=== PATIENT | male | born 1960 | race Caucasian/White ===

== ENCOUNTER → 2018-03-30 | Day surgery (SDC) | payer BC ==
[~2018-03-30] MED LIST: ASPIR 8181 MG PO; BACITRACIN 50,000 UNIT VIAL ONE; BUPIVACAINE HCL 0.5% INJ 30 ML VIAL INJ ONE; CEFAZOLIN SOD 1 GM VIAL ONE; CO Q1060 MG PO; DEXAMETHASONE SOD PHOS INJ 4 MG/ML VIAL ONE; FENTANYL CITRATE/PF 100MCG/2 ML INJ ONE; JOINT SUPPLEMENT PO; KETOROLAC TROMETHAMINE 30 MG/ML VIAL ONE; KRILL OIL 1,001 EACH PO; LIDOCAINE HCL 2% LOCAL INJ 5 ML SDV VIAL INJ ONE; LOSARTAN POTASS50 MG PO; MEPERIDINE HCL INJ 50 MG/ML INJ ONE; MIDAZOLAM HCL 2 MG/2 ML VIAL ONE; MULTI-VITAMIN1 EACH PO; ONDANSETRON HCL INJ 2 MG/ML VIAL ONE; PROPOFOL IV EMULSION 10 MG/ML 20 ML VIAL ONE; SEVOFLURANE INHAL SOLN 250 ML PEN BTL ONE
--- OUTSIDE RECORDS SUMMARY | 2018-03-30 05:11 | XMS REPORT | Summary of Care ---
Author Author RICK MALHOTRA M.D. Organization Unknown Address [facility] Phone Unavailable Care Team Providers Care Lens Shaper Grinder Name Role Phone RICK MALHOTRA M.D. Unavailable Unavailable Unavailable Unavailable Functional Status Name Dates Details Functional status health issues are not documented Status: Name Dates Details Cognitive status health issues are not documented Status: Problems Name Dates Details Bilateral shoulder pain (719.41, M25.511) Status: Active Tear of right supraspinatus tendon (840.6, S46.811A) Status: Active Medications Name Dates Details Diclofenac Sodium 75 MG Oral Tablet Delayed Release TAKE 1 TABLET TWICE DAILY Quantity: 1 RICK MALHOTRA M.D. * Start : 15-Mar-2017 Active 60 Tablet Bottle Allergies and Adverse Reactions Name Dates Details Allergy history not documented Status: Procedures Procedure Dates Details [U] XRAY SHOULDER MIN 2 VWS RIGHT [id number] Date: 20-May-2017 Immunization Name Dates Details Immunizations not documented Social History Name Dates Details Unknown if ever smoked Vital Signs Date Test Result Details No Known Vitals to report Results Date Description Value Details Results not documented Plan of Care Name Dates Details Planned Observations Planned Goals not documented Interventions Provided Plan* Patient Education/Instructions: * Patient Education Provided * Reassurance * Counseling Provided. * Orders: I recommend he continue regular oral anti-inflammatories plus his home exercise program and gym work routine. If he does not see more improvement over the next 4-6 weeks he will call to schedule another subacromial injection. Follow-up otherwise as needed. * Follow Up: * Return to the clinic as needed. Instructions Name Dates Details Instructions not documented Encounters Appointment; RICK MALHOTRA M.D. Encounter Diagnosis: Problem not documented On: 15-Mar-2017 15:15 Appointment; RICK MALHOTRA M.D. Encounter Diagnosis: Problem not documented On: 08-Apr-2017 9:30 Appointment; RICK MALHOTRA M.D. Encounter Diagnosis: Problem not documented On: 20-May-2017 9:15 Appointment; RICK MALHOTRA M.D. Encounter Diagnosis: Problem not documented On: 21-May-2017 8:45 Appointment; RICK MALHOTRA M.D. Encounter Diagnosis: Problem not documented On: 24-Jun-2017 9:00 Appointment; RICK AMLHOTRA M.D. Encounter Diagnosis: Problem not documented On: 16-Jul-2017 9:15
--- OUTSIDE RECORDS SUMMARY | 2018-03-30 05:11 | XMS REPORT | Continuity of Care Document ---
Author Author [facility] Address Unknown Phone Unavailable Problems Problem Status Onset Date Classification Date Reported Comments Source S46.293S - STRAIN OF MUSC/FASC/TEND AT S Active 03/17/2017 [facility] [place] Chicken pox Resolved Problem 03/29/2017 [facility] Migraines Resolved Problem 03/29/2017 [facility] Body mass index 28.0-28.9, adult(<span ID="[id number]">Confirmed</span>) Active Problem 03/29/2017 [facility] Hypertension Active Problem 02/14/2016 [facility] Medications Medication Details Route Status Patient Instructions Ordering Provider Order Date Source morphine 1 mg=0.1 mL, Injection, IV Push, q5min PRN for Pain Moderate (4-6), order duration: 5 doses, first dose 02/12/16 8:23:00 CDT, stop date Limited # of times Inactive oc02/12/2016 [facility] promethazine IVPB 12.5 mg, IV Piggyback, Once PRN for nausea/vomiting, infuse over 15 minutes, first dose 02/12/16 8:23:00 CDT Inactive Lastoczy 02/12/2016 [facility] Misc Medication 200 mL, Soln-IV, IV, Once, first dose 02/12/16 8:13:00 CDT, stop date 02/12/16 8:13:00 CDT Inactive migelenbrwillis 02/12/2016 [facility] propofol 550 mg=55 mL, Emulsion, IV, Once, first dose 02/12/16 8:13:00 CDT, stop date 02/12/16 8:13:00 CDT Inactive Kehlenbrink 02/12/2016 [facility] lidocaine 60 mg=3 mL, Injection, IV, Once, first dose 02/12/16 7:54:00 CDT, stop date 02/12/16 7:54:00 CDT Inactive Marsha 02/12/2016 [facility] ethyl chloride topical spray 1 sprays, [place], TOP, Once, first dose 02/12/16 7:00:00 CDT, stop date 02/12/16 7:00:00 CDT Inactive Le 02/12/2016 [facility] garlic 0 Refill(s) Active 02/12/2016 [facility] Zinc mg, Oral, Daily, 0 Refill(s) Active 02/12/2016 [facility] multivitamin Daily, 0 Refill(s) Active 02/12/2016 [facility] Vitamin D with Minerals oral tablet tabs, Oral, Daily, 0 Refill(s) Active 02/12/2016 [facility] Vitamin C 1000 mg oral tablet mg tabs, Oral, Daily, 0 Refill(s) Active 02/12/2016 [facility] LR 500 mL 500 mL, IV, 100 mL/hr, start date 02/12/16 6:31:00 CDT, Adult Eye Procedures or Pain Inactive Le 02/12/2016 [facility] losartan 25 mg oral tablet 25 mg=1 tabs, Oral, Daily, 0 Refill(s) Active 02/10/2016 [facility] aspirin 81 mg oral tablet 81 mg=1 tabs, Oral, Daily, 0 Refill(s) Active 02/10/2016 [facility] Allergies, Adverse Reactions, Alerts Substance Category Reaction Severity Reaction type Status Date Reported Comments Source Levaquin<sup>1</sup> Assertion Drug allergy Active rash [facility] sulfa drugs Assertion Levaquin Drug allergy Active [facility] Levaquin drug allergy Weal (disorder) Allergy [facility] Immunizations Immunization Date Given Site Status Last Updated Comments Source diphtheria/pertussis, acel/tetanus adult 05/24/2008 completed [facility] Results Order Name Results Value Reference Range Date Interpretation Comments Source Shoulder wo contrast MRI Shoulder wo contrast MRI Exam: Right Shoulder wo contrast MRI Clinical Indication: S46.811A Strain of other muscles, fascia and tendons at shoulder and upper arm level, right arm, initial encounter. Right shoulder pain. Comparison: None TECHNIQUE: Axial, oblique coronal, and oblique sagittal MR images of the right shoulder. IV contrast: None. FINDINGS: ROTATOR CUFF AND ASSOCIATED STRUCTURES Rotator cuff: Evidence of prior rotator cuff repair with suture anchor in place in the greater tuberosity of humerus. There is otherwise tendinosis within the supraspinatus and infraspinatus tendons without discrete tear. Bursa: No bursal effusion or thickening is seen. Musculature: There is no muscular tear, contusion, or atrophy. Acromioclavicular joint: There are moderate degenerative changes of the acromioclavicular joint. A type 1 acromion configuration is noted. There is no anterior or lateral acromial downsloping. OSSEOUS STRUCTURES Postsurgical changes in the humerus head relating to prior rotator cuff repair. No acute fracture. LONG BICIPITAL TENDON The intra-articular portion of the long head of the biceps tendon is not well seen suggestive of high-grade partial-thickness and possible complete tear. GLENOHUMERAL JOINT Joint fluid: There is no glenohumeral joint effusion. Cartilage: No focal hyaline cartilage defects are noted. Labrum: Degenerative tearing and thickening of the anteroinferior labrum. No paralabral cysts are seen. OTHER FINDINGS: None. IMPRESSION: 1. Postsurgical changes relating to rotator cuff repair with underlying supraspinatus and infraspinatus tendinosis. No discrete rotator cuff tear. 2. High-grade partial-thickness and possible complete tear of the long head of the biceps tendon. 3. Degenerative tearing and thickening of the anteroinferior labrum. 4. Moderate AC joint degenerative arthritis. SL: [id number] 03/26/2017 - - Read by: Jesus Johnson MD Dictated Date/time: 03/26/17 10:38 Electronically Signed by: Jesus Johnson MD 03/26/17 10:47 FINAL REPORT [facility] Vital Signs Vital Sign Value Date Comments Source Respitory Rate 12 02/12/2016 [facility] Systolic (mm Hg) <content ID='[id number]'>126</content>/<content ID='[id number]'>80</content> 02/12/2016 [facility] Heart Rate 53 02/12/2016 [facility] Systolic (mm Hg) <content ID='[id number]'>121</content>/<content ID='[id number]'>73</content> 02/12/2016 [facility] Respitory Rate 13 02/12/2016 [facility] Heart Rate 43 02/12/2016 [facility] Respitory Rate 14 02/12/2016 [facility] Heart Rate 44 02/12/2016 [facility] Systolic (mm Hg) <content ID='[id number]'>115</content>/<content ID='[id number]'>74</content> 02/12/2016 [facility] Temperature Oral (F) 36.5 Lori 02/12/2016 [facility] Weight 100 02/12/2016 [facility] Height 187.96 cm 02/12/2016 [facility] Weight 28.31 02/12/2016 [facility] Temperature Oral (F) 36.6 Lori 02/12/2016 [facility] Peripheral Pulse Rate 68 02/12/2016 [facility] Weight 27.29 02/10/2016 [facility] Encounters Location Location Details Encounter Type Encounter Number Reason For Visit Attending Provider ADM Date DC Date Status Source Outpatient [id number] EDWINA BAR 08/26/2015 Active [facility] [id number] RAFA ROD 12/18/2015 Active [facility] Outpatient [id number] RAFA ROD 12/26/2015 [facility] Outpatient [id number] Rhett Lainez 02/12/2016 02/12/2016 Active [facility] Outpatient [id number] RAFA ROD 12/08/2016 Active [facility] Out[facility] [id number] Jarrod Atkins 03/26/2017 03/27/2017 [facility] Outpatient [id number] WES HOBSON 02/03/2018 Active [facility] Procedures Procedure Code Date Perfomer Comments Source Colonoscopy [id number] 05/24/2016 [facility] Rotator cuff repair [id number] [facility] Arthroscopy both knees [facility] Left bicept tendon repair [facility] Right inguinal hernia repair [facility] Right rotator cuff repair [facility]
--- OUTSIDE RECORDS SUMMARY | 2018-03-30 05:11 | XMS REPORT | CCD ---
Author Author Auto Generated Organization [facility] Address Unknown Phone Unavailable Care Team Providers Care Offset Printer Name Role Phone Rhett Lainez [facility] [phone] Allergies, Adverse Reactions, Alerts Substance Reaction Status Levaquin Hives Active sulfa drugs Hives Active Problem List Condition Effective Dates Status Hypertension Active Medications Medication Instructions Start Date End Date Status Misc Medication 200 mL, Soln-IV, IV, Once, first 02/12/2016 02/12/2016 Completed dose 02/12/16 8:13:00 CDT, stop date 02/12/16 8:13:00 CDT lidocaine 60 mg=3 mL, Injection, IV, Once, 02/12/2016 02/12/2016 Completed first dose 02/12/16 7:54:00 CDT, stop date 02/12/16 7:54:00 CDT propofol 550 mg=55 mL, Emulsion, IV, Once, 02/12/2016 02/12/2016 Completed first dose 02/12/16 8:13:00 CDT, stop date 02/12/16 8:13:00 CDT LR 500 mL 500 mL, IV, 100 mL/hr, start date 02/12/2016 02/12/2016 Discontinued 02/12/16 6:31:00 CDT, Adult Eye Procedures or Pain ethyl chloride 1 sprays, [place], TOP, Once, first 02/12/2016 02/12/2016 Completed topical spray dose 02/12/16 7:00:00 CDT, stop date 02/12/16 7:00:00 CDT losartan 25 mg oral 25 mg=1 tabs, Oral, Daily, 0 02/10/2016 02/24/2016 Ordered tablet Refill(s) aspirin 81 mg oral 81 mg=1 tabs, Oral, Daily, 0 02/10/2016 02/24/2016 Ordered tablet Refill(s) garlic 0 Refill(s) 02/12/2016 02/26/2016 Ordered Zinc mg, Oral, Daily, 0 Refill(s) 02/12/2016 02/26/2016 Ordered multivitamin Daily, 0 Refill(s) 02/12/2016 02/26/2016 Ordered Vitamin D with tabs, Oral, Daily, 0 Refill(s) 02/12/2016 02/26/2016 Ordered Minerals oral tablet Vitamin C 1000 mg mg tabs, Oral, Daily, 0 Refill(s) 02/12/2016 02/26/2016 Ordered oral tablet morphine 1 mg=0.1 mL, Injection, IV Push, 02/12/2016 02/12/2016 Discontinued q5min PRN for Pain Moderate (4-6), order duration: 5 doses, first dose 02/12/16 8:23:00 CDT, stop date Limited # of times morphine 2 mg=0.2 mL, Injection, IV Push, 02/12/2016 02/12/2016 Discontinued q5min PRN for pain severe (7-10), order duration: 5 doses, first dose 02/12/16 8:23:00 CDT, stop date Limited # of times promethazine IVPB 12.5 mg, IV Piggyback, Once PRN for 02/12/2016 02/12/2016 Discontinued nausea/vomiting, infuse over 15 minutes, first dose 02/12/16 8:23:00 CDT Vital Signs Most recent to oldest [Reference Range]: 1 2 3 Temperature Tympanic [36.6-38.1 DegC] 36.5 DegC *LOW* (02/12/2016 08:15:00) Temperature Temporal Artery [36.3-37.8 DegC] 36.6 DegC (02/12/2016 06:42:00) Temperature Tympanic Fahrenheit 97.7 (02/12/2016 08:15:00) Peripheral Pulse Rate [55-105 bpm] 68 bpm (02/12/2016 06:42:00) Heart Rate Monitored [60-100 bpm] 53 bpm *LOW* (02/12/2016 08:35:00) 43 bpm *LOW* (02/12/2016 08:30:00) 44 bpm *LOW* (02/12/2016 08:25:00) Respiratory Rate [12-20] 12 (02/12/2016 08:35:00) 13 (02/12/2016 08:30:00) 14 (02/12/2016 08:25:00) SpO2 [90-100 %] 98 % (02/12/2016 08:40:00) 98 % (02/12/2016 08:35:00) 98 % (02/12/2016 08:30:00) Blood Pressure [110-120/65-85 mmHg] <content ID='[id number]'>126</content>/<content ID='[id number]'>80</content> mmHg *HI* (02/12/2016 08:35:00) <content ID='[id number]'>121</content>/<content ID='[id number]'>73</content> mmHg *HI* (02/12/2016 08:30:00) <content ID='[id number]'>115</content>/<content ID='[id number]'>74</content> mmHg (02/12/2016 08:25:00) Most recent to oldest [Reference Range]: 1 2 3 Height 187.96 cm (02/12/2016 06:42:00) Height/Length Estimated 190 cm (02/10/2016 07:58:00) Height/Length Dosing 187.96 cm (02/12/2016 06:42:00) Height Inches 74 in (02/12/2016 06:42:00) Weight 100 kg (02/12/2016 06:42:00) Weight Estimated 98.5 kg (02/10/2016 07:58:00) Weight Dosing 100 kg (02/12/2016 06:42:00) Weight Pounds 220 lb (02/12/2016 06:42:00) Body Mass Index 28.31 kg/m2 (02/12/2016 06:42:00) Body Mass Index Estimated 27.29 kg/m2 (02/10/2016 07:58:00) Procedures Procedures Date Related Diagnosis Arthroscopy both knees Left bicept tendon repair Right inguinal hernia repair Right rotator cuff repair
--- OUTSIDE RECORDS SUMMARY | 2018-03-30 05:11 | XMS REPORT | Summary of Care ---
Author Author [facility] [place] Organization [facility] [place] Address Unknown Phone Unavailable Encounter HQ Sandi_ramses(FIN) [id number] Date(s): 03/26/17 - 03/26/17 [facility] Outpatient Imaging [facility] [id number] [place], [place] [address] [phone] Discharge Disposition: Home or Self Care Attending Physician: Jarrod Atkins MD Vital Signs No data available for this section Problem List Condition Effective Dates Status Health Status Informant Chicken Resolved pox(Confirmed) Migraines(Confirmed) Resolved Body mass index Active (BMI) 28.0-28.9, adult(Confirmed) Allergies, Adverse Reactions, Alerts Substance Reaction Severity Status Levaquin1 Active sulfa drugs Levaquin Active 1rash Medications No data available for this section Results No data available for this section Immunizations Given and Recorded Vaccine Date Status Refusal Reason diphtheria/pertussis, acel/tetanus adult 05/24/08 Recorded Procedures Procedure Date Related Diagnosis Body Site Colonoscopy 05/24/16 Rotator cuff repair Social History Social History Type Response Substance Abuse Use: None. Employment/School Status: Employed. 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 Alcohol Current, Type Wine. Smoking Status Former smoker; Exposure to Tobacco Smoke self; Cigarette Smoking Last 365 Days No; Reg Smoking Cessation Counseling No Assessment and Plan No data available for this section
[2018-03-30 08:45] VITALS: BP 133/86
--- NOTE | 2018-03-30 13:56 | Operative Report ---
DATE OF PROCEDURE: March 30, 2018 PREOPERATIVE DIAGNOSES 1. Right hallux rigidus 2. Right second digit hammertoe. POSTOPERATIVE DIAGNOSES 1. Right hallux rigidus 2. Right second digit hammertoe. PLANNED PROCEDURE: 1. Right Rosales bunionectomy with 1st metatarsophalangeal joint implant. 2. Second digit arthrodesis. STATION INSTALLATION SUPERVISOR: Jonathon Guzman DPM ANESTHESIA: General with a postoperative block consisting of 15 mL of 0.5% Marcaine plain. No steroid was administered. ESTIMATED BLOOD LOSS: Less than 10 mL. PATHOLOGY: None. MATERIALS: One size 3 Reference [id number] toe implant, 2-0 Vicryl, 3-0 Vicryl, 4-0 Prolene, one 0.045 K wire. PROCEDURE NOTE: Patient was seen in the preoperative waiting where the correct procedure and site were identified. Patient was brought to the operating room and placed on the operating table in the supine position. General anesthesia was initiated at this time. A well-padded pneumatic tourniquet was placed about the patient's right thigh. The right foot, ankle and leg were then scrubbed, prepped and draped in usual aseptic manner. The right foot, ankle and leg were exsanguinated with an Esmarch bandage and the pneumatic thigh tourniquet was inflated to 350 mmHg for a total time of approximately 45 minutes. Attention was directed to the dorsomedial aspect of the patient's right 1st metatarsophalangeal joint where minimal range of motion was noted to the 1st metatarsophalangeal joint. A 5 cm curvilinear incision was made directly over the joint medial to extensor hallucis longus tendon. Incision was carried through subcutaneous tissues them from deeper underlying structures. All vital neurovascular were identified, retracted medially and laterally and all bleeders were cauterized or ligated as deemed necessary. I did the same incision and a full lateral release was performed consisting of the deep transverse metatarsal ligament, lateral collateral ligament, as well as the fibular sesamoid ligament. The hallux was put through range of motion and found to be functioning in a more proper anatomic alignment. Next, attention was directed back to the 1st metatarsophalangeal joint where a linear capsulotomy was performed to offer good visualization to the 1st metatarsal head. Utilizing sagittal saw, the medial eminence, dorsal eminence and lateral eminence was resected and passed off to the back table. Per weather reporter protocol, the osteotomy was performed at the metatarsal head as well as the base of the proximal phalanx. These were resected and passed off the back table. Next, per weather reporter protocol, a guidewires were placed into the metatarsal and I the proximal phalanx and reamed appropriately. The implant with grommets was placed and found to be functioning in a proper anatomic alignment. This was confirmed via intraoperative fluoroscopy. The wound was flushed with copious amounts of sterile saline mixed with bacitracin. Deep tissues were reapproximated with 2-0 Vicryl, subcutaneous tissue with 3-0 Vicryl and the skin was closed using a running interlocking stitch of 4-0 Prolene. Attention was directed to the dorsal aspect of the patient's right 2nd proximal interphalangeal joint where a 1 cm linear incision was made directly over the proximal interphalangeal joint. Incision was then carried through subcutaneous tissue them from deeper underlying structures. All vital neurovascular structures were identified, retracted medially and laterally and all bleeders were cauterized or ligated as deemed necessary. Next, a tenotomy capsulotomy was performed at the level of proximal interphalangeal joint. The head of the proximal phalanx was freed of all capsular and ligamentous attachments. Next, utilizing a sagittal saw the head of the proximal phalanx was resected and passed off to the back table, as well as the base of the middle phalanx. Next, through a stab incision a tenotomy and capsulotomy was performed at the level of the 2nd metatarsophalangeal joint. Utilizing a double-ended K-wire, the K wire was drilled through the middle and distal phalanx and retrograded back into the proximal phalanx and into the metatarsal head and this was confirmed via intraoperative fluoroscopy. The wound was then flushed with copious amounts of sterile saline. Tendon was reapproximated with 3-0 Vicryl, and the skin was closed using simple interrupted sutures of 4-0 Prolene. The K-wire was then bent, cut and capped. The incision site was then dressed with Adaptic, 4 x 4s, Kerlix, Iglesia wrap and a postop shoe. The patient tolerated the procedure and anesthesia well. Patient was transferred to the postoperative recovery room with vital signs stable and vascular status intact. The patient was monitored there for a short period time before being sent home with the following written and oral instructions: 1. Keep the dressing clean, dry and intact. 2. The patient is to remain partial weightbearing in a postop shoe and to avoid excessive ambulation until being seen in the office. 3. Patient was given the office number and instructed to contact us if any problems should arise. Job#: [id number] MAGI
== END | disposition home or self-care (01) ==
LOC: OR 05:08
PROVIDERS: ATTEND Podiatrist Foot & Ankle Surgery
DX: M20.21 Hallux rigidus, right foot (principal); M20.41 Other hammer toe(s) (acquired), right foot; I10 Essential (primary) hypertension; E78.00 Pure hypercholesterolemia, unspecified; Z88.1 Allergy status to other antibiotic agents; Z88.2 Allergy status to sulfonamides; Z88.8 Allergy status to other drugs, medicaments and biological substances; Z79.82 Long term (current) use of aspirin; Z01.810 Encounter for preprocedural cardiovascular examination
CPT/HCPCS: 28270; 28285; 28291; 93005; C1776; J0690; J1885; J2001; J2175; J2250; J2405; J2704; C1713; J1100